=== PATIENT | female | born 1950 | race Caucasian/White ===

== ENCOUNTER 2022-03-05 23:49 | Emergency (ER) | payer BC ==
[2022-03-06 01:46] LABS: Hemoglobin 11.7 g/dL (12.0-16.0); Mean Corpuscular HGB CONC 33.6 g/dL (32.0-36.0); Mean Corpuscular Hemoglobin 28.9 pg (27.0-31.0); Mean Corpuscular Volume 85.9 fl (78.0-98.0); Mean Platelet Volume 6.6 fL (7.4-10.4); Platelet Count 300 10x3/uL (130-400); Red Blood Cell (RBC) Count 4.05 mill/uL (4.20-5.40); White Blood Cell (WBC) Count 8.3 10x3/uL (4.8-10.8)
[2022-03-06 01:48] LABS: Band 7 % (5-11); Eosinophils 1 % (0-10); Lymphocytes 5 % (21-51); MDiff Complete? YES; Monocytes 2 % (0-10); Neutrophil 82 % (42-75); Reactive Lymphocytes 3 % (0-10)
[2022-03-06 01:49] LABS: INR-International Normal Ratio 1.1; Prothrombin Time 14.4 sec (12.0-14.7)
[2022-03-06 02:02] LABS: ALT (SGPT) 29 U/L (8-55); AST (SGOT) 17 U/L (5-34); Albumin 3.3 g/dL (3.4-4.8); Alkaline Phosphatase 88 U/L (40-110); Anion Gap 13 mmol/L (10-20); BUN (Urea Nitrogen) 17 mg/dL (9.8-20.1); Bilirubin, Total 0.4 mg/dL (0.2-1.2); Calc. Creatinine Clearance 0 mL/min (70-130); Carbon Dioxide 28 mmol/L (23-31); Chloride 94 mmol/L (98-107); Estimated GFR 99; Globulin 2.4 g/dL (2.4-3.5); Glucose 113 mg/dL (80-115); Potassium 4.5 mmol/L (3.5-5.1); Protein, Total 5.7 g/dL (5.8-8.1); Sodium 130 mmol/L (136-145)
[2022-03-06] MEDS ORDERED: Sodium Chloride 0.9% 100 ML ONE (04:09)
[2022-03-06] MEDS ORDERED: Cefepime 1 GM VIAL ONE (04:09)
[2022-03-06] MEDS ORDERED: Vancomycin 1 GM VIAL ONE (04:09)
[2022-03-06 04:37] LABS: Base Excess-Venous 1.2 mmol/L (-2.0 to 3.0); Bicarbonate (HCO3v) 26.8 mmol/L (22.0-28.0); CO2 Tension (PvCO2) 45.6 mmHg (42.0-51.0); Calcium, Ionized 1.11 mmol/L (1.15-1.33); Chloride 92 mmol/L (98-107); Hemoglobin - Calc 11.7 g/dL (12.0-16.0); Potassium 3.9 mmol/L (3.5-5.1); Sodium 129 mmol/L (138-145); T. Carbon Dioxide 28.2 mmol/L (22.0-28.0); vO2 Saturation-calc 61.4 % (60.0-85.0)
[2022-03-06 04:37] LABS: Bilirubin Negative (Negative); Blood, Urine Trace (Negative); Clarity Clear (Clear); Glucose, Urine (Dipstick) Negative (Negative); Ketone, Urine Negative (Negative); Leukocyte Negative (Negative); Nitrite Negative (Negative); Protein, Urine (Dipstick) 100 mg/dL (Neg-Trace); Specific Gravity, Urine 1.015 (1.005-1.030); Urobilinogen 0.2 mg/dL (Less than 2); pH, Urine 6.5 (5.0-9.0)
[2022-03-06 04:41] LABS: RBC/HPF 0-3 HPF (0-3)
[2022-03-06 04:42] LABS: Bacteria/HPF 1+ HPF (None Seen); Mucous/LPF 1+ LPF (<2+); Squamous Epithelial 0-3 HPF (0-3); WBC/HPF 0-3 HPF (0-3)
[2022-03-06] MEDS ORDERED: Iopamidol 370 76% 100 ML VIAL ONE (11:58)
== END 2022-03-06 05:22 | disposition short-term general hospital (02) ==
LOC: BURERS 23:49
DX: J18.9 Pneumonia, unspecified organism (principal); R55 Syncope and collapse; I10 Essential (primary) hypertension; Z87.891 Personal history of nicotine dependence
CPT/HCPCS: 70450; 71045; 71275; 80053; 81003; 81015; 82330; 82803; 83605; 83880; 84484; 85025; 85610; 87040; 93005; 96365; 96375; J0692; J3370; J3490; Q9967